=== PATIENT | female | born 1955 | race Caucasian/White ===

== ENCOUNTER → 2023-09-02 12:33 | Outpatient (REF) | payer MEDICARE, OTHER, SELFPAY ==
[2023-09-02 13:34] LABS: % Basophils 0.7 % (0-2); % Eosinophils 4.6 % (0-6); % Immature Granulocytes 0.7 % (0-0.5); % Lymphocytes 33.6 % (20.5-51.1); % Monocytes 9.1 % (1.7-9.3); % Neutrophils 51.3 % (42.2-75.2); Absolute Eosinophils 0.2 10^3/uL (0-0.7); Absolute Lymphocytes 1.6 10^3/uL (1.2-3.4); Absolute Monocytes 0.4 10^3/uL (0.1-0.6); Absolute Neutrophils 2.4 10^3/uL (1.4-6.5); Hemoglobin 9.7 g/dL (12.0-16.0); Mean Corp Hgb Conc. 31.3 g/dL (33.0-37.0); Mean Corpuscular Hgb 28.7 pg (27.0-31.0); Mean Corpuscular Volume 91.7 fL (81.0-99.0); Mean Platelet Volume 10.7 fL (7.4-10.4); Nucleated Red Blood Cells % 0 %; Platelet Count 279 10^3/uL (130-400); Red Blood Cell Count 3.38 10^6/uL (4.20-5.40); Red Cell Dist. Width 14.5 % (11.5-14.5); White Blood Cell Count 4.6 10^3/uL (4.8-10.8)
[2023-09-02 13:53] LABS: ALT (SGPT) 18 U/L (0-35); AST (SGOT) 22 U/L (14-36); Albumin 3.9 g/dl (3.5-5.0); Alkaline Phosphatase 31 U/L (38-126); Blood Urea Nitrogen 25 mg/dl (7-17); Carbon Dioxide 28 mmol/L (22-30); Chloride 103 mmol/L (98-107); Glucose 91 mg/dl (70-99); HDL Cholesterol 93 mg/dl; LDL Cholesterol, Calculated 55 mg/dl; Potassium 4.4 mmol/L (3.5-5.1); Sodium 140 mmol/L (135-145); Total Bilirubin 0.5 mg/dl (0.2-1.3); Total Cholesterol 162 mg/dl (50-199); Total Protein 6.4 g/dl (6.3-8.2); Triglyceride 70 mg/dl (10-149); Very Low Density Lipoprotein 14 mg/dl (0-30); eGFR > 60.00
[2023-09-02 14:24] LABS: TSH Reflex To Free T4 0.83 uIU/ml (0.47-4.68)
[2023-09-02 14:34] LABS: Glycohemoglobin (HgbA1c) 5.7 % (4.0-5.6)
[2023-09-02 14:43] LABS: Vitamin B12 266 pg/ml (239-931)
== END ==
LOC: REG 12:33
PROVIDERS: ATTENDING PHYSICIAN Nurse Practitioner Family
DX: E78.00 Pure hypercholesterolemia, unspecified (principal); R73.03 Prediabetes; R20.0 Anesthesia of skin; I42.7 Cardiomyopathy due to drug and external agent
CPT/HCPCS: 36415; 80053; 80061; 82607; 83036; 84443; 85025

== ENCOUNTER 2023-11-28 15:06 | Emergency (ER) | payer MEDICARE, OTHER, SELFPAY ==
[2023-11-28 15:18] VITALS: BP 146/89
[2023-11-28 15:25] LABS: Glucose - Point of Care 131 mg/dl (70-99)
[2023-11-28 15:32] LABS: % Basophils 0.4 % (0-2); % Eosinophils 0.9 % (0-6); % Immature Granulocytes 0.4 % (0-0.5); % Lymphocytes 19.2 % (20.5-51.1); % Monocytes 8.1 % (1.7-9.3); Absolute Eosinophils 0.1 10^3/uL (0-0.7); Absolute Lymphocytes 1.3 10^3/uL (1.2-3.4); Absolute Monocytes 0.6 10^3/uL (0.1-0.6); Absolute Neutrophils 4.9 10^3/uL (1.4-6.5); Hematocrit 32.4 % (37.0-47.0); Hemoglobin 10.2 g/dL (12.0-16.0); Mean Corp Hgb Conc. 31.5 g/dL (33.0-37.0); Mean Corpuscular Hgb 28.5 pg (27.0-31.0); Mean Corpuscular Volume 90.5 fL (81.0-99.0); Mean Platelet Volume 10.4 fL (7.4-10.4); Nucleated Red Blood Cells % 0 %; Platelet Count 347 10^3/uL (130-400); Red Blood Cell Count 3.58 10^6/uL (4.20-5.40); Red Cell Dist. Width 13.7 % (11.5-14.5); White Blood Cell Count 6.9 10^3/uL (4.8-10.8)
[2023-11-28 15:51] LABS: ALT (SGPT) 48 U/L (0-35); AST (SGOT) 49 U/L (14-36); Albumin 4.6 g/dl (3.5-5.0); Alkaline Phosphatase 41 U/L (38-126); Blood Urea Nitrogen 23 mg/dl (7-17); Calcium 9.9 mg/dl (8.4-10.2); Carbon Dioxide 23 mmol/L (22-30); Chloride 101 mmol/L (98-107); Glucose 118 mg/dl (70-99); Potassium 3.8 mmol/L (3.5-5.1); Sodium 133 mmol/L (135-145); Total Bilirubin 0.4 mg/dl (0.2-1.3); Total Protein 7.3 g/dl (6.3-8.2); eGFR 55.42
[2023-11-28 17:45] VITALS: BMI 26.8
[2023-11-28 17:52] VITALS: BP 125/76
[2023-11-28 18:30] VITALS: BP 117/77
--- NOTE | 2023-11-28 18:45 | ED.GENMED ---
History of Present Illness
General
Chief Complaint: Dizziness
Source: patient
Exam Limitations: none
Time Seen by Provider: 11/28/23 18:09
Nursing documentation reviewed up to this point in time: agreed with
Travel History
Have you had any contact with someone who has COVID-19?: No
Do you have any symptoms of coronavirus? Fever > 100 degrees, chills, cough, shortness of breath, sore throat, loss of taste or smell, muscle aches, or headache?: No
History of Present Illness
History of Present Illness:
pt is a 68 y/o F with h/o breast ca in 2017 with resolved cardiomyopathy
On Lasix presents after feeling lightheaded today starting around 1 PM. Patient says that at 10:30 in the morning she took her dose of Ozempic
But accidentally clicked past her dose of 0.75 mL and thinks she got probably over a total of 1 mL. She says she did not think anything of it initially, she says it is at the bottom of her syringe so she is really not sure how much she got. It
could have bee at most 1.5 mL.
She initially felt fine. But on her drive into work she started feeling lightheaded. This became slightly concerning, she says that she has been lightheaded with orthostasis in the past with standing due to her blood pressure but this felt
different. She got to work and called her who came and drove behind her, following her home to make sure she got home safely. Patient laid down on the couch and ate and drank but still did not feel right. She did not have her blood
pressure cuff or her Accu-Cheks to check her blood sugar so she ended up coming to the hospital. Patient says she was symptomatic in the waiting room with lightheadedness just even with sitting but never had any nausea or vomiting, chest pain,
shortness of breath. Since being here she is feeling completely resolved. She has no symptoms with standing. She never passed out. She wanted to make sure her heart was okay.
Past History
Past History
ED Past Medical History: Cancer, Psychiatric and Other (Breast cancer status post lumpectomy and axillary dissection with chemotherapy and radiation in 2018 with concurrent cardiomyopathy with an EF of 30% from the chemotherapy wearing a LifeVest)
ED Past Surgical History: and Other (Lumpectomy and axillary dissection)
Social History
Tobacco: Non-smoker
Alcohol: None
Drug: None
Personal:
Living: with family
Employment: Employed
Review of Systems
Review of Systems
Allergies reviewed?: Yes
All Other Systems: Not applicable
Phy Exam
Physical Exam
Physical Exam:
GENERAL: Alert , in no apparent distress
EYE: pupils equal and reactive L sided strabismus
NECK: Supple
ENT: o/p clr, mmm.
CARDIAC: Regular rate and rhythm .no edema
LUNGS: Clear breath sounds bilaterally, no acute respiratory distress, no wheezes/rales/rhonchi
ABDOMEN: Soft, without focal tenderness, no r/g, no cvat, normal bowel sounds
NEUROLOGICAL: Alert and oriented, no focal neuro deficits
SKIN: Warm and dry, skin intact.
MUSCULOSKELETAL: No edema, well perfused. neg aurora's sign
PSYCH: Normal and appropriate interaction.
Course
Orders/Labs/Results
Orders:
Orders
11/28/23 15:24
Complete Blood Count/With Diff Urgent
Comprehensive Metabolic Panel Urgent
11/28/23 18:12
Electrocardiogram (*1) Urgent
Reason for Study: Fatigue / Weakness
EKG- Treatment ONCE
Abnormal Lab Results
11/28/23
15:24
RBC 3.58 L 10^6/uL
(4.20-5.40)
Hgb 10.2 L g/dL
(12.0-16.0)
Hct 32.4 L %
(37.0-47.0)
MCHC 31.5 L g/dL
(33.0-37.0)
Lymphocytes % 19.2 L %
(20.5-51.1)
Sodium 133 L mmol/L
(135-145)
BUN 23 H mg/dl
(7-17)
Creatinine 1.1 H mg/dL
(0.6-1.0)
Glucose 118 H mg/dl
(70-99)
AST 49 H U/L
(14-36)
ALT 48 H U/L
(0-35)
POC Glucose 131 H mg/dl
(70-99)
11/28/23 15:24
11/28/23 15:24
Vital Signs
Initial and Last Documented VS:
Initial Vital Signs
Temp Pulse Resp BP Pulse Ox
98.1 F 80 18 146/89 98
11/28/23 15:18 11/28/23 15:18 11/28/23 15:18 11/28/23 15:18 11/28/23 15:18
Last Documented Vital Signs
Temp Pulse Resp BP Pulse Ox
98.5 F 69 18 127/76 99
11/28/23 18:56 11/28/23 18:56 11/28/23 18:56 11/28/23 18:56 11/28/23 18:56
MDM/Problems Addressed
Differential Diagnosis Includes:
medication side effect, orthostasis, near syncope
MDM/Problems Addressed:
68-year-old female with a history of cardiomyopathy secondary to breast cancer treatment chemotherapy presents for lightheadedness. Patient says she accidentally overdosed on her Ozempic today. She says it was at the end of the pen and she did not
realize that she clicked past her dose and gave herself a second shot. She is really not sure how much was in it but she thinks it was probably a total of 1 mL or just slightly over. She is never had that dose yet. She has been off Ozempic for
months. She has not felt nauseous but she has felt lightheaded. She has not passed out or had any chest pain or shortness of breath. She now feels completely resolved. Patient does have a history of orthostatic hypotension, her blood pressure
drops when she stands, this has been ongoing for years. She has no symptoms of it currently. On exam the patient looks well, hydrated, heart lungs sound clear, there is no edema in her legs. She does drop her blood pressure about 15 systolic and
her heart rate went up about 15 beats with standing however patient was completely asymptomatic. She says this is common for her. We will check an EKG which should be left bundle branch block which is chronic for her. And likely discharge.
Likely medication side effect
ekg unchanged lbbb /dchome
*Critical Care Note
Total Time (30-74mins, 75-104mins- exclusive of procedures): Not Applicable
ED Attending Note
-
Portions of this chart may have been created with voice recognition software.� Occasional wrong word or��sound alike� substitutions may have occurred due to the inherent limitations of voice recognition software.
Discharge Plan
Departure
Patient Disposition: Home (Routine Discharge)
Date of Disposition: 11/28/23
Time of Disposition: 18:55
Patient with high blood pressure during this ER visit?: No
Covid-19: Not Applicable
Discharge Problem:
Lightheadedness, Orthostasis, Dehydration, Medication side effect
Instructions: Dizziness, Nonvertigo, (DC)
Prescriptions:
No Action
metoprolol succinate 50 MG tablet extended release 24 hr
50 mg PO DAILY Qty: 30 0RF
aspirin 81 MG tablet,delayed release (DR/EC)
81 mg PO DAILY Qty: 30 0RF
lisinopril 5 MG tablet
5 mg PO DAILY Qty: 30 0RF
anastrozole 1 MG tablet
1 mg PO DAILY
cholecalciferol (vitamin D3) 1,000 UNITS tablet
1,000 units PO WEEKLY
Patient Comments:
TAKES 1-2 TIMES A WEEK
potassium chloride 20 MEQ tablet extended release
250 mg PO DAILY
furosemide 40 MG tablet
40 mg PO MOWEFR
mecobalamin (vitamin B12) [B12 Active] 1,000 mcg Tablet,Chewable
1,000 mcg PO DAILY
Referrals:
Deven Cuellar, [Family Provider] - Follow up in 2-3 days
Activity Restrictions/Additional Instructions:
I believe that your lightheadedness today was a side effect of the accidental overdose and Ozempic. You do also drop your blood pressure slightly standing up which is something that you said you have had before. Your blood work shows that you
could be very minimally dehydrated, make sure to drink fluids. We offered you IV fluids but you preferred to drink the fluids.
Your blood work otherwise showed a minimal elevation of one of your liver markers which can just be followed up by your doctor, this can be as a result of being on Ozempic, not necessarily from today's accidental dose. This is not worrisome. But
return for the ER for any passing out episodes, severe chest or shortness of breath, abdominal pain, vomiting or any concerns
Interventions
Interventions:
*Risk Screen - Suicide Last Done: 11/28/23 15:18
*General Assessment Last Done: 11/28/23 15:18
*Neglect/Abuse Screening Last Done: 11/28/23 15:18
ED- Fall Risk Assessment Last Done: 11/28/23 17:50
*ED COVID-19 Vaccine History Last Done: 11/28/23 15:18
*Nursing Disposition Last Done: 11/28/23 19:00
ED- Neurological Assessment Last Done: 11/28/23 17:50
ED- Cardiac Assessment Last Done: 11/28/23 17:50
ED Swallowing Screen Last Done: 11/28/23 17:50
Discharge Date and Time
Discharge Date/Time: 11/28/23 19:00
Print Language: GREEK
[2023-11-28 18:56] VITALS: BP 127/76
== END 2023-11-28 19:00 | disposition home or self-care (01) ==
LOC: EMR 15:06
PROVIDERS: EMERGENCY PHYSICIAN Emergency Medicine; FAMILY PHYSICIAN Family Medicine
DX: R42 Dizziness and giddiness (principal); T38.3X5A Adverse effect of insulin and oral hypoglycemic [antidiabetic] drugs, initial encounter; I95.1 Orthostatic hypotension; E86.0 Dehydration
CPT/HCPCS: 99284; 80053; 82962; 85025; 93005

== ENCOUNTER → 2024-01-14 08:13 | Outpatient (REF) | payer MEDICARE, OTHER, SELFPAY ==
[2024-01-14 10:05] LABS: HDL Cholesterol 109 mg/dl; LDL Cholesterol, Calculated 81 mg/dl; Total Cholesterol 202 mg/dl (50-199); Triglyceride 60 mg/dl (10-149); Very Low Density Lipoprotein 12 mg/dl (0-30)
== END ==
LOC: REG 08:13
PROVIDERS: ATTENDING PHYSICIAN Internal Medicine; FAMILY PHYSICIAN Family Medicine
DX: E78.00 Pure hypercholesterolemia, unspecified (principal)
CPT/HCPCS: 36415; 80061

== ENCOUNTER → 2024-02-16 07:01 | Outpatient (REF) | payer MEDICARE, OTHER, SELFPAY ==
[2024-02-16 09:50] LABS: % Basophils 0.5 % (0-2); % Eosinophils 2.7 % (0-6); % Immature Granulocytes 0.4 % (0-0.5); % Lymphocytes 31.4 % (20.5-51.1); % Monocytes 10.5 % (1.7-9.3); % Neutrophils 54.5 % (42.2-75.2); Absolute Eosinophils 0.2 10^3/uL (0-0.7); Absolute Lymphocytes 1.7 10^3/uL (1.2-3.4); Absolute Monocytes 0.6 10^3/uL (0.1-0.6); Hematocrit 32.4 % (37.0-47.0); Hemoglobin 10.4 g/dL (12.0-16.0); Mean Corp Hgb Conc. 32.1 g/dL (33.0-37.0); Mean Corpuscular Hgb 28.5 pg (27.0-31.0); Mean Corpuscular Volume 88.8 fL (81.0-99.0); Mean Platelet Volume 10.7 fL (7.4-10.4); Nucleated Red Blood Cells % 0 %; Platelet Count 317 10^3/uL (130-400); Red Blood Cell Count 3.65 10^6/uL (4.20-5.40); Red Cell Dist. Width 14.3 % (11.5-14.5); White Blood Cell Count 5.5 10^3/uL (4.8-10.8)
[2024-02-16 10:23] LABS: ALT (SGPT) 30 U/L (0-35); AST (SGOT) 31 U/L (14-36); Albumin 4.5 g/dl (3.5-5.0); Alkaline Phosphatase 34 U/L (38-126); Blood Urea Nitrogen 32 mg/dl (7-17); Calcium 9.9 mg/dl (8.4-10.2); Carbon Dioxide 29 mmol/L (22-30); Chloride 103 mmol/L (98-107); Direct Bilirubin 0.2 mg/dl (0.0-0.4); Glucose 91 mg/dl (70-99); Potassium 4.1 mmol/L (3.5-5.1); Sodium 139 mmol/L (135-145); Total Bilirubin 0.3 mg/dl (0.2-1.3); Total Protein 6.9 g/dl (6.3-8.2); eGFR > 60.00
[2024-02-16 10:49] LABS: Glycohemoglobin (HgbA1c) 5.5 % (4.0-5.6)
[2024-02-16 11:38] LABS: TSH Reflex To Free T4 1.48 uIU/ml (0.47-4.68)
[2024-02-16 11:57] LABS: Vitamin B12 659 pg/ml (239-931)
== END ==
LOC: HWLAB 07:01
PROVIDERS: ATTENDING PHYSICIAN Internal Medicine Hematology & Oncology; FAMILY PHYSICIAN Family Medicine; REFERRING PHYSICIAN Nurse Practitioner Family
DX: R73.03 Prediabetes (principal); R20.0 Anesthesia of skin; I50.30 Unspecified diastolic (congestive) heart failure; I42.7 Cardiomyopathy due to drug and external agent; C50.412 Malignant neoplasm of upper-outer quadrant of left female breast
CPT/HCPCS: 36415; 80053; 82248; 82607; 83036; 84443; 85025

== ENCOUNTER → 2024-03-06 14:36 | Outpatient (REF) | payer MEDICARE, OTHER, SELFPAY | LOC: HWRAD 14:36 | PROVIDERS: ATTENDING PHYSICIAN Nurse Practitioner Adult Health; FAMILY PHYSICIAN Family Medicine | DX: C50.412 Malignant neoplasm of upper-outer quadrant of left female breast (principal) | CPT/HCPCS: 71260; Q9967 ==

== ENCOUNTER → 2024-05-29 07:05 | Outpatient (REF) | payer MEDICARE, OTHER, SELFPAY | LOC: WDC 07:05 | PROVIDERS: ATTENDING PHYSICIAN Obstetrics & Gynecology Gynecology; FAMILY PHYSICIAN Family Medicine | DX: Z12.31 Encounter for screening mammogram for malignant neoplasm of breast (principal) | CPT/HCPCS: 77063; 77067 ==

== ENCOUNTER → 2024-09-04 09:40 | Outpatient (REF) | payer MEDICARE, OTHER, SELFPAY ==
[2024-09-04 14:54] LABS: % Basophils 0.3 % (0-2); % Eosinophils 0.2 % (0-6); % Immature Granulocytes 0.7 % (0-0.5); % Lymphocytes 8.5 % (20.5-51.1); % Monocytes 10.1 % (1.7-9.3); % Neutrophils 80.2 % (42.2-75.2); Absolute Immature Granulocytes 0.1 10^3/uL (0-0.05); Absolute Lymphocytes 0.9 10^3/uL (1.2-3.4); Absolute Monocytes 1.1 10^3/uL (0.1-0.6); Absolute Neutrophils 8.4 10^3/uL (1.4-6.5); Hematocrit 33.7 % (37.0-47.0); Hemoglobin 10.7 g/dL (12.0-16.0); Mean Corp Hgb Conc. 31.8 g/dL (33.0-37.0); Mean Corpuscular Hgb 28.3 pg (27.0-31.0); Mean Corpuscular Volume 89.2 fL (81.0-99.0); Nucleated Red Blood Cells % 0 %; Platelet Count 299 10^3/uL (130-400); Red Blood Cell Count 3.78 10^6/uL (4.20-5.40); Red Cell Dist. Width 13.8 % (11.5-14.5); White Blood Cell Count 10.5 10^3/uL (4.8-10.8)
[2024-09-04 15:10] LABS: ALT (SGPT) 10 U/L (0-35); AST (SGOT) 16 U/L (14-36); Albumin 4.2 g/dl (3.5-5.0); Alkaline Phosphatase 49 U/L (38-126); Blood Urea Nitrogen 16 mg/dl (7-17); Calcium 9.8 mg/dl (8.4-10.2); Carbon Dioxide 26 mmol/L (22-30); Chloride 100 mmol/L (98-107); Glucose 99 mg/dl (70-99); HDL Cholesterol 99 mg/dl; LDL Cholesterol, Calculated 54 mg/dl; Magnesium 2.1 mg/dl (1.6-2.3); Potassium 4.3 mmol/L (3.5-5.1); Sodium 134 mmol/L (135-145); Total Bilirubin 0.8 mg/dl (0.2-1.3); Total Cholesterol 163 mg/dl (50-199); Total Protein 6.6 g/dl (6.3-8.2); Triglyceride 54 mg/dl (10-149); Very Low Density Lipoprotein 10 mg/dl (0-30); eGFR > 60.00
[2024-09-04 15:21] LABS: Free T4 1.29 ng/dl (0.78-2.19)
[2024-09-04 15:34] LABS: TSH 1.17 uIU/ml (0.47-4.68)
[2024-09-05 09:27] LABS: Glycohemoglobin (HgbA1c) 5.8 % (4.0-5.6)
== END ==
LOC: HWLAB 09:40
PROVIDERS: ATTENDING PHYSICIAN Nurse Practitioner Family; FAMILY PHYSICIAN Family Medicine
DX: E78.00 Pure hypercholesterolemia, unspecified (principal); R73.03 Prediabetes; D64.9 Anemia, unspecified; E88.810 Metabolic syndrome
CPT/HCPCS: 36415; 80053; 80061; 83036; 83735; 84439; 84443; 85025

== ENCOUNTER → 2025-03-19 11:58 | Outpatient (REF) | payer MEDICARE, OTHER, SELFPAY ==
[2025-03-19 15:41] LABS: Hematocrit 35.2 % (37.0-47.0); Hemoglobin 11.0 g/dL (12.0-16.0); Mean Corp Hgb Conc. 31.3 g/dL (33.0-37.0); Mean Corpuscular Volume 90.5 fL (81.0-99.0); Nucleated Red Blood Cells % 0 %; Platelet Count 239 10^3/uL (130-400); Red Cell Dist. Width 13.9 % (11.5-14.5)
[2025-03-19 15:51] LABS: ALT (SGPT) 51 U/L (0-35); AST (SGOT) 26 U/L (14-36); Albumin 4.2 g/dl (3.5-5.0); Alkaline Phosphatase 39 U/L (38-126); Blood Urea Nitrogen 30 mg/dl (7-17); Calcium 9.6 mg/dl (8.4-10.2); Carbon Dioxide 28 mmol/L (22-30); Chloride 105 mmol/L (98-107); Glucose 86 mg/dl (70-99); HDL Cholesterol 93 mg/dl; LDL Cholesterol, Calculated 69 mg/dl; Magnesium 2.2 mg/dl (1.6-2.3); Potassium 4.1 mmol/L (3.5-5.1); Sodium 137 mmol/L (135-145); Total Protein 6.8 g/dl (6.3-8.2); Uric Acid 3.0 mg/dl (2.5-6.2); Very Low Density Lipoprotein 9 mg/dl (0-30); eGFR > 60.00
[2025-03-19 16:20] LABS: TSH 1.78 uIU/ml (0.47-4.68)
[2025-03-20 06:41] LABS: Glycohemoglobin (HgbA1c) 5.4 % (4.0-5.6)
== END ==
LOC: HWLAB 11:58
PROVIDERS: ATTENDING PHYSICIAN Internal Medicine; FAMILY PHYSICIAN Family Medicine
DX: E78.00 Pure hypercholesterolemia, unspecified (principal); I10 Essential (primary) hypertension; R73.03 Prediabetes; E88.810 Metabolic syndrome; Z79.899 Other long term (current) drug therapy; I42.7 Cardiomyopathy due to drug and external agent
CPT/HCPCS: 36415; 80053; 80061; 83036; 83735; 84439; 84443; 84550; 85025

== ENCOUNTER → 2025-05-08 07:12 | Outpatient (REF) | payer MEDICARE, OTHER, SELFPAY | LOC: WDC 07:12 | PROVIDERS: ATTENDING PHYSICIAN Obstetrics & Gynecology Gynecology; FAMILY PHYSICIAN Family Medicine | DX: Z12.31 Encounter for screening mammogram for malignant neoplasm of breast (principal); Z85.3 Personal history of malignant neoplasm of breast | CPT/HCPCS: 77063; 77067 ==

== ENCOUNTER → 2025-06-05 12:01 | Outpatient (REF) | payer MEDICARE, OTHER, SELFPAY | LOC: HWRAD 12:01 | PROVIDERS: ATTENDING PHYSICIAN Family Medicine | DX: M20.012 Mallet finger of left finger(s) (principal) | CPT/HCPCS: 73130 ==

== ENCOUNTER → 2025-07-12 08:58 | Outpatient (REF) | payer MEDICARE, OTHER, SELFPAY | LOC: HWRAD 08:58 | PROVIDERS: ATTENDING PHYSICIAN Nurse Practitioner Family; FAMILY PHYSICIAN Family Medicine | DX: I50.20 Unspecified systolic (congestive) heart failure (principal); Z78.0 Asymptomatic menopausal state | CPT/HCPCS: 77080 ==